=== PATIENT | female | born 1970 | race Asian ===

== ENCOUNTER 2020-10-24 15:19 | Emergency (ER) | payer MEDICAID, OTHER ==
[2020-10-24 15:33] VITALS: BP 143/99
--- NOTE | 2020-10-24 16:23 | ED Physician Documentation ---
History of Present Illness - Stated complaint Stated Complaint: SORE THROAT/HEADACHE/FEVER - Chief complaint Chief Complaint: General - History obtained from History obtained from: Patient, Family - History of Present Illness Timing: Today Pain level max: 0 Pain level now: 0 - Additonal information Additional information: 50-year-old female with a Covid exposure about a week ago. Has had body aches since then. Has not received her vaccine. Has a mild dry cough. No difficulty breathing. No vomiting. No abdominal pain. No rash. Nothing makes it better or worse. Mild rhinorrhea and congestion as well Review of Systems Ten Systems: 10 systems reviewed and negative Constitutional: denies: Fever, Chills Nose: reports: Rhinorrhea / runny nose, Congestion Cardiac: denies: Chest pain / pressure Respiratory: reports: Cough. denies: Dyspnea, Wheezing GI: denies: Vomiting, Diarrhea : denies: Dysuria Skin: denies: Rash Musculoskeletal: denies: Neck pain, Back pain PD PAST MEDICAL HISTORY - Past Medical History Past Medical History: No - Present Medications Home Medications: Ambulatory Orders Medication Instructions Recorded Confirmed Benzonatate [Tessalon] 200 mg PO TID PRN #30 cap 10/24/20 Cetirizine HCl/Pseudoephedrine 1 each PO BID PRN #30 ea 10/24/20 [Zyrtec-D Tablet] - Allergies Allergies/Adverse Reactions: Allergies Allergy/AdvReac Type Severity Reaction Status Date / Time No Known Drug Allergies Allergy Verified 10/24/20 15:27 - Living Situation Living Situation: reports: With family Living Arrangement: reports: At home PD ED PE NORMAL - Vitals Vital signs reviewed: Yes - General General: Alert and oriented X 3, No acute distress, Well developed/nourished - HEENT HEENT: Moist mucous membranes - Neck Neck: Supple, no meningeal sign - Cardiac Cardiac: RRR, Strong equal pulses - Respiratory Respiratory: No respiratory distress, Clear bilaterally - Abdomen Abdomen: Soft, Non tender, Non distended - Derm Derm: Warm and dry - Extremities Extremities: No edema - Neuro Neuro: Alert and oriented X 3 - Psych Psych: Normal mood, Normal affect Results - Vitals Vitals: Vital Signs - 24 hr 10/24/20 15:27 Temperature 36.8 C Heart Rate 78 Respiratory 16 Rate Blood Pressure 143/99 H O2 Saturation 99 Oxygen O2 Source Room air PD MEDICAL DECISION MAKING - ED course Complexity details: considered differential, d/w patient ED course: Patient with Covid exposure. Requesting Covid test. This was performed. We will have the patient quarantine until results are available. No hypoxia. No respiratory distress. No indication for imaging at this time. Patient counseled regarding signs and symptoms for which I believe and urgent re- evaluation would be necessary. Patient with good understanding of and agreement to plan and is comfortable going home at this time This document was made in part using voice recognition software. While efforts are made to proofread this document, sound alike and grammatical errors may occur. Departure - Departure Disposition: Home, Self Care Clinical Impression: Viral URI Condition: Good Instructions: ED Viral Syndrome Follow-Up: your,doctor as needed [Other] Prescriptions: Benzonatate [Tessalon] 200 mg PO TID PRN #30 cap PRN Reason: Cough Cetirizine HCl/Pseudoephedrine [Zyrtec-D Tablet] 1 each PO BID PRN #30 ea PRN Reason: nasal congestion Comments: You have a Covid test pending. You need to self quarantine until the result is done and negative. Do not leave your house. Do not get near anybody. The results should be done in 48 to 72 hours. We will call with a positive result, the fastest way to get a negative result for confirmation though is to go to the hospital website at [email or web address], click on the my [employer] tab and sign up for the patient portal. If any friends or family get sick and would like to have a Covid test done, but do not have signs or symptoms that would necessitate being hospitalized, we encourage testing through our coronavirus swabbing station, call [phone] to schedule an appointment. Discharge Date/Time: 10/24/20 16:50
== END 2020-10-24 16:50 | disposition home or self-care (01) ==
LOC: ED 15:19
DX: J06.9 Acute upper respiratory infection, unspecified (principal); B97.89 Other viral agents as the cause of diseases classified elsewhere; Z20.822 Contact with and (suspected) exposure to COVID-19
CPT/HCPCS: 99283; 99284

== ENCOUNTER 2021-02-20 02:40 | Outpatient (CLI) | payer MEDICAID | END 2021-02-20 02:41 | disposition critical access hospital (66) | LOC: EMS 02:40 | DX: R22.31 Localized swelling, mass and lump, right upper limb (principal); L53.9 Erythematous condition, unspecified | CPT/HCPCS: A0425; A0429 ==

== ENCOUNTER 2021-02-20 03:00 | Emergency (ER) | payer MEDICAID ==
--- NOTE | 2021-02-20 02:58 | ED Physician Documentation ---
PD HPI SKIN - Stated complaint Stated Complaint: HAND SWELLING - History obtained from History obtained from: Patient, EMS - History of Present Illness Timing - onset: How many days ago (2-3) Timing - duration: Days Timing - details: Gradual onset, Constant Pain level now: 10 Location: RUE Quality / character: Painful, Discolored, Swelling Improved by: Other (no ameliorating factors) Worsened by (comment): COMMENT (palpation, movement) Associated symptoms: No: Fever Contributing factors: Unknown Similar symptoms before: Has not had sx before Recently seen: Not recently seen - Additional information Additional information: BIBA. patient is right hand dominant, c/o 2-3 days of gradual onset swelling, pain, erythema of right thumb that has steadily progressed in intensity and area involved. denies injury, denies h/o similar symptoms. she admits to IVDA but strongly denies injection(s) in or near the thumb. Review of Systems Constitutional: reports: Reviewed and negative Musculoskeletal: reports: Extremity pain, Extremity swelling Neurologic: denies: Focal weakness, Numbness PD PAST MEDICAL HISTORY - Past Medical History Past Medical History: Yes Neuro: Seizure disorder - Present Medications Home Medications: Ambulatory Orders Medication Instructions Recorded Confirmed HYDROcod/ACETAM 5/325 [Wilmer 5/325] 1 - 2 tablet PO Q6H PRN #10 tablet 02/20/21 Levetiracetam [Keppra] mg PO DAILY 02/20/21 clindamycin HCL [Clindamycin HCl] 450 mg PO TID #30 cap 02/20/21 lisinopriL [Lisinopril] 10 mg PO DAILY #30 tablet 02/20/21 - Allergies Allergies/Adverse Reactions: Allergies Allergy/AdvReac Type Severity Reaction Status Date / Time No Known Drug Allergies Allergy Verified 02/20/21 03:12 PD ED PE NORMAL - Vitals Vital signs reviewed: Yes - General General: Alert and oriented X 3, Other (obvious painful distress, frequently moaning in pain) - Neck Neck: Supple, no meningeal sign - Cardiac Cardiac: RRR, No murmur - Respiratory Respiratory: No respiratory distress, Clear bilaterally - Extremities Extremities: Other (right antecubital punctures without erythema or swelling s/o recent IVDA; no visible puncutres nor other break(s) in skin integrity of right thumb; in addition to findings on exam of thumb (below), there is mild swelling and tenderness of thenar eminence) - Neuro Neuro: Alert and oriented X 3, No sensory deficit PD ED PE EXPANDED - General General: Disheveled, poorly kept, In Pain - HEENT HEENT: Dental decay (extensive dental decay and attrition) - Extremities Extremities: Tenderness, Limited ROM, Swelling, Vascular intact, Other (Right thumb erythema, swelling, tenderness that is circumferential and involves entire thumb (from IP joint to tip of thumb, but most prominent along extensor surface over proximal phalanx with bullae). LTS intact at tip with <2 second capillary refill. Limited flexion/extension (pain, swelling)) Results - Vitals Vitals: Vital Signs - 24 hr 02/20/21 02/20/21 02/20/21 03:09 03:12 03:38 Temperature 36.7 C Heart Rate 93 96 78 Respiratory 18 16 15 Rate Blood Pressure 185/125 H 175/129 H O2 Saturation 100 98 99 02/20/21 02/20/21 02/20/21 03:48 04:47 06:00 Temperature 36.7 C Heart Rate 65 64 61 Respiratory 15 16 18 Rate Blood Pressure 169/107 H 172/122 H O2 Saturation 99 98 100 02/20/21 02/20/21 06:41 06:54 Temperature Heart Rate 60 80 Respiratory 14 16 Rate Blood Pressure 157/104 H O2 Saturation 99 100 Oxygen O2 Source Room air - Labs Labs: Laboratory Tests 02/20/21 02/20/21 02/20/21 03:22 03:22 03:22 WBC 8.8 RBC 4.57 Hgb 13.2 Hct 39.9 MCV 87.3 MCH 28.9 MCHC 33.1 RDW 12.1 Plt Count 172 MPV 9.3 Neut # (Auto) 6.5 Lymph # (Auto) 1.6 [place] # (Auto) 0.6 Eos # (Auto) 0.0 Baso # (Auto) 0.0 Absolute Nucleated RBC 0.00 Nucleated RBC % 0.0 ESR Sodium 138 Potassium 3.8 Chloride 105 Carbon Dioxide 25 Anion Gap 8.0 BUN 15 Creatinine 0.7 Estimated GFR (MDRD) 88 L Glucose 104 H Lactic Acid 0.6 Calcium 8.9 C-Reactive Protein < 1.0 02/20/21 03:22 WBC RBC Hgb Hct MCV MCH MCHC RDW Plt Count MPV Neut # (Auto) Lymph # (Auto) [place] # (Auto) Eos # (Auto) Baso # (Auto) Absolute Nucleated RBC Nucleated RBC % ESR 6 Sodium Potassium Chloride Carbon Dioxide Anion Gap BUN Creatinine Estimated GFR (MDRD) Glucose Lactic Acid Calcium C-Reactive Protein - Rads (name of study) right hand xrays Radiology: Prelim report reviewed, See rad report PD MEDICAL DECISION MAKING - ED course Complexity details: reviewed results, re-evaluated patient, considered differential, d/w patient ED course: presents with atraumatic right thumb swelling and pain and exam suggestive of infectious process. she is afebrile and has unremarkable blood test results including normal WBC, lactate, CRP, and ESR. her xrays do not evidence FB nor subcutaneous gas. excellent pain control was achieved with one dose of toradol and dilaudid IV, and she then became very drowsy and difficult to awaken but maintained normal vital signs including pulse ox and respiratory rate. this allowed for further ED observation and after several hours in ED and serial exams, there was no progression in swelling nor area involved. she is given IV vancomycin followed by PO clindamycin. she gradually became more awake and alert and I was able to review results with patient and confirm that she has good pain relief with the medications given. I discussed the case with Dr. Swann (sanitation worker [employer] for [facility]). he recommends PO abx and close follow up; specifically that she should be reevaluated within 2-3 days. With the upcoming holiday, this will be difficult for patient to undertake and so I instruct her to return to the ED for reevaluation in 2-3 days if she cannot be reevaluated in outpatient setting within this timeframe. she is also instructed to return at any time she feels progression of symptoms or develops new concerning signs/symptoms (such as fever loss of sensation, blanching or blue discoloration). patient was able to acknowledge these instructions by repeating them back to me. incidentally noted is persistently elevated high blood pressure readings throughout stay, without significant improvement once her pain was controlled. we discussed this prior to d/c and she indicates to me that she has been diagnosed with hypertension and is supposed to be taking lisinopril but stopped taking it without direction to do so. she is given a dose of lisinopril in ED and I submitted rx for same to her pharmacy of choice I am prescribing a short course of short-acting opioid pain medication for this patient. I have reviewed the patients [employer] and no concerning findings were noted. I have discussed that the opioids are for short term therapy only, and will not be refilled from the ED. Consideration was given to her IVDA but the physical examination would indicate the likely need for opioid pain medication for the short-term; risks and benefits of opioid medication was discussed with patient as well. Departure - Departure Disposition: 01 Home, Self Care Clinical Impression: Cellulitis Qualifiers: Site of cellulitis: extremity Site of cellulitis of extremity: finger Laterality: right Qualified Code(s): L03.011 - Cellulitis of right finger Hypertension Qualifiers: Hypertension type: unspecified Qualified Code(s): I10 - Essential (primary) hypertension Condition: Good Instructions: ED Infec Skin Cellulitis, ED HTN Established Follow-Up: Rashad Swann MD [Provider Admit Priv/Credential] - Prescriptions: clindamycin HCL [Clindamycin HCl] 450 mg PO TID #30 cap lisinopriL [Lisinopril] 10 mg PO DAILY #30 tablet HYDROcod/ACETAM 5/325 [Wilmer 5/325] 1 - 2 tablet PO Q6H PRN #10 tablet PRN Reason: Pain Comments: Prescriptions for pain medication (hydrocodone with acetaminophen), antibiotic (clindamycin), and blood pressure medication (lisinopril) have been electronically submitted to [facility] in [place]. It is critical that you take these medications as prescribed starting today. You should have a reevaluation in 2-3 days; if you can arrange this with your primary care provider or at an urgent care facility or walk-in clinic, please do so. If you cannot arrange for follow-up in 2-3 days, you can return to the emergency department for reevaluation. Discharge Date/Time: 02/20/21 08:24
[2021-02-20 03:30] LABS: BASOPHILS % (AUTO) 0.2 %; EOSINOPHILS % (AUTO) 0.5 %; HCT - HEMATOCRIT 39.9 % (37.0-47.0); HGB - HEMOGLOBIN 13.2 g/dL (12.0-16.0); LYMPHOCYTES # (AUTO) 1.6 10^3/uL (1.5-3.5); LYMPHOCYTES % (AUTO) 18.7 %; MEAN CORPUSCULAR HEMOGLOBIN 28.9 pg (27.0-31.0); MEAN CORPUSCULAR HGB CONC 33.1 g/dL (32.0-36.0); MEAN CORPUSCULAR VOLUME 87.3 fL (81.0-99.0); MEAN PLATELET VOLUME 9.3 fL (7.9-10.8); MONOCYTES # (AUTO) 0.6 10^3/uL (0.0-1.0); MONOCYTES % (AUTO) 6.8 %; NEUTROPHILS # (AUTO) 6.5 10^3/uL (1.5-6.6); NEUTROPHILS % (AUTO) 73.6 %; PLT - PLATELET COUNT 172 10^3/uL (130-450); RED BLOOD COUNT 4.57 10^6/uL (4.20-5.40); RED CELL DISTRIBUTION WIDTH 12.1 % (12.0-15.0); WHITE BLOOD COUNT 8.8 x10^3/uL (4.8-10.8)
[2021-02-20] MEDS: KETOROLAC 30 MG/ML VIAL IVP STA (03:31)
[2021-02-20] MEDS ORDERED: VANCOMYCIN 1 GM VIAL ONE (03:31)
[2021-02-20] MEDS: HYDROmorphone 1 MG/ML CARPUJECT IVP STA (03:31)
[2021-02-20] MEDS: VANCOMYCIN INJ 1 GM in SODIUM CHLORIDE 0.9% 500 ML IV STA (03:47)
[2021-02-20 03:48] LABS: BUN - BLOOD UREA NITROGEN 15 mg/dL (6-20); CALCIUM 8.9 mg/dL (8.5-10.3); CARBON DIOXIDE - CO2 25 mmol/L (21-32); CHLORIDE 105 mmol/L (101-111); CREATININE 0.7 mg/dL (0.4-1.0); GFR - MDRD 88 (>89); GLUCOSE 104 mg/dL (70-100); POTASSIUM 3.8 mmol/L (3.5-5.0); SODIUM 138 mmol/L (135-145)
[2021-02-20 03:50] LABS: CRP - C-REACTIVE PROTEIN < 1.0 mg/dL (0-1.0)
[2021-02-20 06:42] VITALS: BP 157/104
[2021-02-20] MEDS: CLINDAMYCIN 150 MG CAPSULE PO STA (06:55)
[2021-02-20] MEDS: lisinopriL 5 MG TABLET PO STA (08:18)
--- NOTE | 2021-02-20 08:27 | XRAY Report ---
PROCEDURE: Hand 3 View RT INDICATIONS: pain, swelling TECHNIQUE: 3 views of the hand acquired. COMPARISON: None. FINDINGS: Bones: No acute fractures or dislocations. No suspicious bony lesions. Chronic healed fracture def ormity of the fifth metacarpal is seen. A chronic ununited ulnar styloid fracture is noted. There is flexion of the fourth distal interphalangeal joint. Small chronic appearing ossifications are seen at the dorsal aspect of the fourth distal interphalangeal joint that may be related to a subacute or ch ronic avulsion injury versus chronic degenerative changes. Small juxtacortical lucencies are seen at the second and third proximal phalangeal heads and the third middle phalangeal head. Mild to moderate degenerative changes are seen at the first carpometacarpal joint. Soft tissues: No suspicious soft tissue calcifications. IMPRESSION: 1.Tiny osseous fragments are seen along the dorsal aspect of the fourth distal interphalangeal joint, which is held in flexion throughout the exam. Findings may be related to a subacute to chronic avuls ion injury versus chronic arthritic changes. 2.Small lucencies at the radial aspect of the second proximal phalangeal head and at the third proxim al and middle phalangeal heads, which are likely degenerative chronic erosions are not excluded. Durga mmend correlation with clinical findings for any signs of an inflammatory arthritis. 3.Mild to moderate first carpometacarpal osteoarthrosis. Reviewed by: Talon Boggs MD on 02/20/2021 8:26 AM PST Approved by: Talon Boggs MD on 02/20/2021 8:26 AM PST Station ID: [id number]
== END 2021-02-20 08:24 | disposition home or self-care (01) ==
LOC: EDBD → EDUNIT# → ED 03:00
DX: L03.011 Cellulitis of right finger (principal); I10 Essential (primary) hypertension; T46.4X6A Underdosing of angiotensin-converting-enzyme inhibitors, initial encounter; Z91.128 Patient's intentional underdosing of medication regimen for other reason; M19.041 Primary osteoarthritis, right hand; K02.9 Dental caries, unspecified
CPT/HCPCS: 36415; 73130; 80048; 83605; 85025; 85651; 86140; 87040; 96365; 96366; 96375; 99283; 99284; A9270; J1170; J3370